=== PATIENT | female | born 1970 | race Caucasian/White ===

== ENCOUNTER → 2018-05-07 15:57 | Outpatient (CLI) | payer BC | END | disposition home or self-care (01) | LOC: D.LABREF 15:57 | DX: D72.829 Elevated white blood cell count, unspecified (principal); R31.9 Hematuria, unspecified ==

== ENCOUNTER → 2018-05-28 09:42 | Outpatient (CLI) | payer BC | END | disposition home or self-care (01) | LOC: D.CT 05-27 09:30 | PROVIDERS: ATTEND Urology | DX: R31.21 Asymptomatic microscopic hematuria (principal) ==

== ENCOUNTER → 2018-06-25 13:53 | Outpatient (CLI) | payer BC | END | disposition home or self-care (01) | LOC: D.LABREF 13:53 | PROVIDERS: ATTEND Urology | DX: D72.829 Elevated white blood cell count, unspecified (principal); R31.9 Hematuria, unspecified ==

== ENCOUNTER 2018-07-22 07:24 | Day surgery (SDC) | payer BC ==
[~2018-07-22] VITALS: Ht 172.7 cm; Wt 90.7 kg
[~2018-07-22 07:24] MED LIST: ASPIRIN EC81 M1 PO; BENADRYL25 MG PO; FLUTICASONE PRO16 GM NASAL; NEURONTIN 400400 MG PO; PHENERGAN25 M1 PO; PROTONIX40 MG PO; SKELAXIN800 MG PO; XANAX1 MG PO; ZOFRAN4 MG PO; ZYRTEC10 MG PO
[2018-07-22 08:00] LABS: BASOPHILS 0.5 % (0-2); EOSINOPHILS 1.3 % (0-7); HEMATOCRIT 37.8 % (36.0-48.0); HEMOGLOBIN 12.3 g/dL (12-16); IMMATURE GRANULOCYTES 0.5 % (0-5); MCH 30.6 pg (26.0-34.0); MCHC 32.5 g/dL (31.0-37.0); MEAN PLATELET VOLUME 9.8 fL (7.4-10.4); MONOCYTES 7.3 % (2-11); NEUTROPHILS 53.4 % (40-80); PLATELET COUNT 291 10x3/uL (130-400); RBC 4.02 10x6/uL (4.00-5.40); RDW 13.3 % (11.5-14.5); WBC 7.8 10x3/uL (4.8-10.8)
[2018-07-22] MEDS ORDERED: FOLIC ACID1 MG PO (08:12)
[2018-07-22] MEDS ORDERED: VITAMIN B-121000 MCG INJ (08:15)
[2018-07-22 08:17] LABS: APTT 24.8 SECONDS (22.8-39.4); INR 0.95 (0.85-1.17); PROTIME 12.2 SECONDS (11.6-15.0)
[2018-07-22 08:28] VITALS: BP 110/70; Ht 172.7 cm; Wt 90.7 kg
[2018-07-22 08:34] LABS: HCG URINE NEGATIVE (NEGATIVE)
--- NOTE | 2018-07-23 10:23 | OP ---
PATIENT NAME: NAYELY GALLEGO MEDICAL RECORD: [id number] :74 LOCATION:D.OPS ADMISSION DATE: SURGEON: MIKE BALDERRAMA MD DATE OF OPERATION: 07/22/2018 SURGEON: Mike Balderrama MD ANESTHESIA: TIVA by Emery Randall CRNA DIAGNOSIS: Microscopic hematuria. PROCEDURE: Cystoscopy. FINDINGS: Single ureteral orifices. No bladder tumors. Vascular urethral mucosa. BLOOD LOSS: None. CLINICAL HISTORY: This is a 48-year-old female who is a former smoker of half a pack per day since age 22. She is being investigated for microscopic hematuria. She had CT scan of the abdomen and pelvis which showed normal kidneys. Urine cytology was unremarkable. I attempted to perform cystoscopy in the office, but there was trouble with the instrumentation and I could not get a good view of the bladder. She comes today to have cystoscopy done. She is not allergic to any medications and she was given Ancef on-call to the OR. DESCRIPTION OF PROCEDURE: The patient was given IV sedation. She was placed into dorsal lithotomy position and prepped and draped. Cystoscopy was performed using a 17-[place] cystoscope with 30-degree lens. She had single ureteral orifices on each side. There was some bladder inflammation visible. No bladder tumors were seen. The bladder was then drained through the cystoscope sheath and then the scope was removed. I will see the patient in followup on p.r.n. basis. TRANSINT:[id number] Voice Confirmation ID: [id number] DOCUMENT ID: [id number] MIKE BALDERRAMA MD at 1023 CC: [id number] DICTATION DATE: 07/22/18 1416 CA[facility] MAKER: 07/22/18 1452 [facility] 07/22/18 [id number] [place] [address]
== END 2018-07-22 15:15 | disposition home or self-care (01) ==
LOC: D.OPS 07:24 → D.PAN 09:30 → D.OPS 15:15
PROVIDERS: Anesthesiology; ATTEND Urology
DX: R31.29 Other microscopic hematuria (principal); Z87.891 Personal history of nicotine dependence; Z01.812 Encounter for preprocedural laboratory examination